=== PATIENT | male | born 1990 | race Caucasian/White ===

== ENCOUNTER 2021-09-20 04:00 | Emergency (ER) | payer OTHER ==
[~2021-09-20] VITALS: Ht 167.6 cm; Wt 77.1 kg
--- NOTE | 2021-09-20 04:51 | NUR ---
CALLED FOR TRIAGE, NOT IN WAITING ROOM
--- NOTE | 2021-09-20 05:38 | NUR ---
BIBSELF C/O PIMPLE ON LIP +CHILLS . PT A/OX4. TOLERATING R/A WELL
[2021-09-20 05:40] VITALS: BP 128/73
[2021-09-20] MEDS ORDERED: LIDOCAINE 1%-EPI 1:100,000 20 ML VIAL ONE (06:04)
[2021-09-20] MEDS ORDERED: SULFAMETH/TRIMETH 800/160 MG 1 UDTAB TABLET ONE (06:07)
[2021-09-20] MEDS ORDERED: SULFAMETH/TRIMETH 800/160 MG 1 UDTAB TABLET PO ONE (06:30)
[2021-09-20] MEDS ORDERED: SULF1TAB48 PO (06:35)
[2021-09-20] MEDS ORDERED: MUPI22OI2 TP (06:36)
--- NOTE | 2021-09-20 06:56 | NUR ---
Patient discharged to home in stable condition. RX Written and verbal after care instructions given. Patient verbalizes understanding of instruction. PT ambulatory with a steady gait
== END 2021-09-20 06:56 | disposition home or self-care (01) ==
LOC: ER 04:03
DX: J34.0 Abscess, furuncle and carbuncle of nose (principal); L73.9 Follicular disorder, unspecified; J45.909 Unspecified asthma, uncomplicated
CPT/HCPCS: 10060; 99283; A6407; J3490